=== PATIENT | female | born 2000 | race African-American/Black ===

== ENCOUNTER 2021-08-19 20:25 | Emergency (ER) | payer OTHER, BC, SELFPAY ==
--- NOTE | ~2021-08-19 | XR_ITS ---
EXAMINATION: XR hand RT min 3V EXAM DATE: 08/19/2021 21:03 INDICATION: Laceration On Middle Of Palm From Glass Plate Breaking . TECHNIQUE: Right hand frontal, lateral and oblique projections obtained and reviewed. There is no pr ior study for comparison. FINDINGS: Right metacarpal bones are unremarkable. There are no acute fractures or dislocations iden tified. There is no subcutaneous gas. The soft tissue is unremarkable. There are no radiopaque fo reign bodies. IMPRESSION: No radiopaque foreign bodies identified. Reviewed, dictated and finalized at location [facility] [employer]
[2021-08-19 20:27] VITALS: BP 127/72; PULSE 84; RESP 20; TEMP 36.4; O2SAT 98
--- NOTE | 2021-08-19 20:52 | ED.WOUNDLAC ---
HPI - Wound/Laceration General Chief Complaint: Wound/Laceration <Ana Mcdonald PA-C - Last Filed: 08/19/21 21:47> Stated Complaint: laceration <Ana Mcdonald PA-C - Last Filed: 08/19/21 21:47> Time Seen by Provider: 08/19/21 20:40 <Ana Mcdonald PA-C - Last Filed: 08/19/21 21:47> Source: patient <Ana Mcdonald PA-C - Last Filed: 08/19/21 21:47> Mode of arrival: EMS <Ana Mcdonald PA-C - Last Filed: 08/19/21 21:47> Limitations: no limitations <Ana Mcdonald PA-C - Last Filed: 08/19/21 21:47> History of Present Illness HPI narrative: This is a 21 year old female that presents to the ER via EMS for a laceration to the right hand sustained just prior to arrival. Reports she was at work and a dish broke causing a laceration to the palm. She is not up to date on tetanus. Denies decreased ROM or numbness. <Ana Mcdonald PA-C - Last Filed: 08/19/21 21:47> Review of Systems Review of Systems: CONSTITUTIONAL: Denies fever SKIN: Reports laceration <Ana Mcdonald PA-C - Last Filed: 08/19/21 21:47> All systems reviewed & are unremarkable except as noted in HPI and below <Ana Mcdonald PA-C - Last Filed: 08/19/21 21:47> PMFSH Past Medical History Medical History: Medical History (Updated 08/20/21 @ 00:00 by Ninfa Beard) History of hypothyroidism <Ana Mcdonald PA-C - Last Filed: 08/19/21 21:47> Social History Social History: Social History (Updated 08/19/21 @ 20:54 by Ana Mcdonald PA-C) Smoking status: Never smoker <Ana Mcdonald PA-C - Last Filed: 08/19/21 21:47> Exam Narrative: GENERAL: Well-appearing, well-nourished, and in no acute distress. HEAD: Normocephalic, atraumatic. EYES: EOMI. EXTREMITIES: Normal range of motion. No edema. 2.5cm linear laceration into subcutaneous tissue of the right palm. Normal radial pulse. Normal sensation SKIN: Warm, dry, no rash. NEURO: No focal deficits. Alert and oriented x3. PSYCH: Normal mood and affect <Ana Mcdonald PA-C - Last Filed: 08/19/21 21:47> Course CAFETERIA TABLE ATTENDANT/PA Physician Supervision For this patient encounter, I reviewed the CAFETERIA TABLE ATTENDANT or PA documentation, treatment plan, and medical decision making <Jean-Pierre Andrews MD - Last Filed: 08/20/21 19:10> Vital Signs Vital signs: Vital Signs Temperature 97.6 F 08/19/21 20:27 Pulse Rate 84 08/19/21 20:27 Respiratory Rate 20 08/19/21 20:27 Blood Pressure 127/72 08/19/21 20:27 Pulse Oximetry 98 08/19/21 20:27 Temperature 98.4 F 08/19/21 21:58 Pulse Rate 80 08/19/21 21:58 Respiratory Rate 16 08/19/21 21:58 Blood Pressure 118/72 08/19/21 21:58 Pulse Oximetry 98 08/19/21 21:58 <Ana Mcdonald PA-C - Last Filed: 08/19/21 21:47> Vital Signs Temperature 97.6 F 08/19/21 20:27 Pulse Rate 84 08/19/21 20:27 Respiratory Rate 20 08/19/21 20:27 Blood Pressure 127/72 08/19/21 20:27 Pulse Oximetry 98 08/19/21 20:27 Temperature 98.4 F 08/19/21 21:58 Pulse Rate 80 08/19/21 21:58 Respiratory Rate 16 08/19/21 21:58 Blood Pressure 118/72 08/19/21 21:58 Pulse Oximetry 98 08/19/21 21:58 <Jean-Pierre Andrews MD - Last Filed: 08/20/21 19:10> Procedures Laceration Laceration 1: Date: 08/19/21 <Ana Mcdonald PA-C - Last Filed: 08/19/21 21:47> Site: hand <Ana Mcdonald PA-C - Last Filed: 08/19/21 21:47> Side (If applicable): right <BRAYAN Luke Last Filed: 08/19/21 21:47> Size (cm): 2.5 <BRAYAN Luke Last Filed: 08/19/21 21:47> Description: linear <BRAYAN Luke Last Filed: 08/19/21 21:47> Depth: simple, single layer <BRAYAN Luke Last Filed: 08/19/21 21:47> Local Anesthetic: lidocaine 1% and with epi <BRAYAN Luke Last Filed: 08/19/21 21:47> Amount of anesthesia used (mL): 2 <Ana Mcdonald
[2021-08-19] MEDS: TETANUS,DIPHTHERIA,AC PERTUSSIS ADULT (0.5 ML) BOOSTRIX IM (21:07)
[2021-08-19 21:58] VITALS: BP 118/72; PULSE 80; RESP 16; TEMP 36.9; O2SAT 98
== END 2021-08-19 21:59 | disposition home or self-care (01) ==
PROVIDERS: Emergency Provider Emergency Medicine
DX: S61.411A Laceration without foreign body of right hand, initial encounter (principal); Z23 Encounter for immunization; E03.9 Hypothyroidism, unspecified; W26.8XXA Contact with other sharp object(s), not elsewhere classified, initial encounter
CPT/HCPCS: 12001; 73130; 90471; 90715; 99283

== ENCOUNTER 2021-08-31 15:51 | Emergency (ER) | payer OTHER, BC, SELFPAY ==
--- NOTE | 2021-08-31 16:01 | ED.WOUNDLAC ---
HPI - Wound/Laceration General Chief Complaint: Wound/Laceration Stated Complaint: SUTURE REMOVAL Time Seen by Provider: 08/31/21 16:00 Source: patient Mode of arrival: ambulatory Limitations: no limitations History of Present Illness HPI narrative: Blessing Nguyen is a 21 yo female with no PMH who cams to [facility] to get sutures removed from a broken plate that cut her palm of her right hand while at work-the laceration is well approximated, well-healed Related Data Home Medications Medication Instructions Recorded Confirmed levothyroxine 08/31/21 Allergies Allergy/AdvReac Type Severity Reaction Status Date / Time No Known Allergies Allergy Verified 08/31/21 15:59 Review of Systems Review of Systems: CONSTITUTIONAL: Denies fever, chills, sweats. EYES: Denies visual changes, redness, discharge. ENT: Denies rhinorrhea, congestion, sore throat, otalgia. CARDIOVASCULAR: Denies chest pain, palpitations, edema. RESPIRATORY: Denies dyspnea, wheezing, cough GASTROINTESTINAL: Denies abdominal pain, nausea, vomiting, diarrhea. GENITOURINARY: Denies dysuria, hematuria, abnormal discharge SKIN: Denies rash or itching. Suture removal of 4 sutures NEUROLOGIC: Denies numbness, or focal weakness. PSYCHIATRIC: Denies anxiety or depression. [facility] Past Medical History Medical History History of hypothyroidism Social History Social History (Updated 08/31/21 @ 16:12 by Diya Callejas CNP) Smoking status: Never smoker Alcohol intake: never Comments At time of signature, I agree with nursing past medical, surgical, social and family history. There is no relevant family history pertinent to the presenting complaint. Exam Narrative: GENERAL: This is a well-nourished, well-developed patient, in no distress. HEAD: normocephalic, atraumatic. EYES: Sclera clear/white. Vision is grossly intact. EARS: External ears normal, Hearing grossly intact. NOSE: External nose normal without nasal discharge, nares without redness, no rhinorrhea. THROAT: Mucous membranes moist, NECK: Neck supple, CARDIOVASCULAR: Regular rate and rhythm without murmurs, gallops, or rubs. RESPIRATORY: Clear to auscultation. Breath sounds equal bilaterally. No wheezes, rales, or rhonchi. GASTROINTESTINAL: Not done SKIN: warm, intact with no suspicious lesions or rash, good texture and turgor. Well approximated well-healed laceration to the right palm NEURO: awake, alert, and oriented to person, place and time. There were no obvious focal neurologic abnormalities. Steady gait EXTREMITIES: Normal range of motion. BACK: Nontender without deformity Course Course Emergency Course: Patient here for suture removal 4 sutures removed from right palm and Doron dressing applied Level of Care: [facility] Visit Vital Signs Vital signs: Vital Signs Temperature 97.6 F 08/31/21 16:02 Pulse Rate 85 08/31/21 16:02 Respiratory Rate 16 08/31/21 16:02 Blood Pressure 137/80 08/31/21 16:02 Pulse Oximetry 100 08/31/21 16:02 Temperature 97.6 F 08/31/21 16:02 Pulse Rate 85 08/31/21 16:02 Respiratory Rate 16 08/31/21 16:02 Blood Pressure 137/80 08/31/21 16:02 Pulse Oximetry 100 08/31/21 16:02 Procedures Other Procedure Procedure 1: Other Procedure: 4 sutures removed from palm of right hand and dressing applied-laceration well approximated well-healed MDM - Wound/Laceration Differential Diagnosis Differential diagnosis: Likely laceration, avulsion of skin and other Discharge Plan Discharge Clinical Impression: Encounter for removal of sutures Patient Disposition: Home, Self-Care Condition: Stable Instructions: Stitches Removal (ED) Additional Instructions: Keep hand dry if at work May shower and do normal activities and get hand wet but do not soak hand in water for another week Prescriptions: No Action levothyroxine 50 mcg tablet
[2021-08-31 16:02] VITALS: BP 137/80; PULSE 85; RESP 16; TEMP 36.4; O2SAT 100
== END 2021-08-31 16:19 | disposition home or self-care (01) ==
PROVIDERS: Emergency Provider Nurse Practitioner
DX: S61.411D Laceration without foreign body of right hand, subsequent encounter (principal); X58.XXXD Exposure to other specified factors, subsequent encounter; E03.9 Hypothyroidism, unspecified
CPT/HCPCS: 99211; G0463